=== PATIENT | male | born 1940 | race Caucasian/White ===

== ENCOUNTER 2017-04-23 12:26 | Emergency (ER) | payer MEDICARE ==
[~2017-04-23] VITALS: Ht 172.7 cm; Wt 74.0 kg
[2017-04-23 12:28] VITALS: BP 184/94; PULSE 78; RESP 15; TEMP 98.4; O2SAT 98
[2017-04-23] MEDS ORDERED: SODIUM CHLOR 0.9% 1000 ML INJ 1,000 ML IV SCH (12:54)
[2017-04-23 12:56] VITALS: RESP 17; O2SAT 98
[2017-04-23] MEDS ORDERED: diphenhydrAMINE HCL 50 MG/ML VIAL IVP ONE (13:00)
[2017-04-23] MEDS ORDERED: FAMOTIDINE 20 MG/2 ML VIAL IV PUSH ONE (13:00)
[2017-04-23] MEDS ORDERED: DEXAMETHASONE SOD PHOS 20 MG/5 ML VIAL IV PUSH ONE (13:00)
[2017-04-23] MEDS ORDERED: SODIUM CHLORIDE 0.9% FLUSH 10 ML FLUSH IV FLUSH PRN (13:00)
[2017-04-23] MEDS ORDERED: IBUP-232 PO (13:10)
[2017-04-23] MEDS ORDERED: COMB0.2S EACH EYE (13:10)
[2017-04-23] MEDS ORDERED: ROSU40 PO (13:10)
--- NOTE | 2017-04-23 13:27 | PD ---
HPI Chief Complaint: Allergic/Adverse Reaction Time Seen by Provider: 12:47 Travel History International Travel<30 days: No Contact w/Intl Traveler<30days: No Traveled to known affect area: No History of Present Illness HPI Patient is a 77-year-old male who presents to emergency room with complaints of possible allergic reaction. Patient reports that he is allergies penicillin, reports that the last time he took penicillin, he broke out in a rash and had swollen lips. Reports that at that time, he did not have any airway involvement. Patient reports that he was driving from [place] today to [place] and ate bernabe chips on the road. Reports that he thinks that he may have eaten moldly chips as he began to breakout in hives with swelling around his eyes. Patient with no airway involvement at this time. Patient reports that he has not been taking any new medications, has not used any new lotions or creams at this time. Patient with no chest pain or shortness of breath, no other complaints. PFSH Past Medical History High Cholesterol: Yes Diminished Hearing: No Medical other: Yes Tetanus Vaccination: > 5 Years Past Surgical History Eye Surgery: Yes Social History Alcohol Use: Yes (ocassionally) Tobacco Use: Yes Substance Use: No Allergies-Medications (Allergen,Severity, Reaction): Coded Allergies: Penicillins (Verified Allergy, Severe, Anaphylaxis, 04/23/17) Reported Meds & Prescriptions Reported Meds & Active Scripts Active Diphenhydramine (Diphenhydramine HCl) 25 Mg Cap 25 Mg PO Q6H PRN 5 Days Pepcid (Famotidine) 20 Mg Tab 20 Mg PO BID 5 Days Epipen 2-Skip Inj (Epinephrine) 0.3 Mg/0.3 Ml Pfpen 0.3 Mg IM ONCE PRN Prednisone 20 Mg Tab 20 Mg PO BID 5 Days Reported Ibuprofen 600 Mg Tab 600 Mg PO TID Take with food Combigan Opth Drops (Brimonidine-Timolol Opth Drops) 0.2-0.5% Soln 1 Drop EACH EYE Q12HR Crestor (Rosuvastatin Calcium) 40 Mg Tab 40 Mg PO HS Review of Systems General / Constitutional: No: Fever Eyes: No: Visual changes HENT: No: Headaches Cardiovascular: No: Chest Pain or Discomfort Respiratory: No: Shortness of Breath Gastrointestinal: No: Abdominal Pain Genitourinary: No: Dysuria Musculoskeletal: No: Pain Skin: Positive Rash, Positive Itching, Positive Hives Neurologic: No: Weakness Psychiatric: No: Depression Endocrine: No: Polydipsia Hematologic/Lymphatic: No: Easy Bruising Physical Exam Narrative GENERAL: Mild distress SKIN: Focused skin assessment warm/dry. Patient with hives to face and neck, there is no petechiae or purpura or drainage HEAD: Atraumatic. Normocephalic. EYES: Pupils equal and round. No scleral icterus. No injection or drainage. ENT: No nasal bleeding or discharge. Mucous membranes pink and moist. NECK: Trachea midline. No JVD. Airways are open and patent, there is no pharyngeal edema, uvula is midline and open and patent. Patient is talking in full sentences, no drooling. CARDIOVASCULAR: Regular rate and rhythm. No murmur appreciated. RESPIRATORY: No accessory muscle use. Clear to auscultation. Breath sounds equal bilaterally. GASTROINTESTINAL: Abdomen soft, non-tender, nondistended. Hepatic and splenic margins not palpable. MUSCULOSKELETAL: No obvious deformities. No clubbing. No cyanosis. No edema. NEUROLOGICAL: Awake and alert. No obvious cranial nerve deficits. Motor grossly within normal limits. Normal speech. PSYCHIATRIC: Appropriate mood and affect; insight and judgment normal. Data Data Last Documented VS Vital Signs Date Time Temp Pulse Resp B/P (MAP) Pulse Ox O2 Delivery O2 Flow Rate FiO2 04/23/17 13:30 97.8 68 16 141/72 (95) 99 Room Air Orders Orders Ecg Monitoring (04/23/17 12:54) Iv Access Insert/Monitor (04/23/17 12:54) Oximetry (04/23/17 12:54) Diphenhydramine Inj (Benadryl Inj) (04/23/17 13:00) Famotidine Inj (Pepcid Inj) (04/23/17 13:00) Sodium Chlor 0.9% 1000 Ml Inj (Ns 1000 M (04/23/17 12:54) Sodium Chloride 0.9% Flush (Ns Flush) (04/23/17 13:00) Dexamethasone Inj (Decadron Inj) (04/23/17 13:00) MDM Medical Decision Making Medical Screen Exam Complete: Yes Emergency Medical Condition: Yes Medical Record Reviewed: Yes Interpretation(s) Vital Signs Date Time Temp Pulse Resp B/P (MAP) Pulse Ox O2 Delivery O2 Flow Rate FiO2 04/23/17 12:56 17 98 Room Air 04/23/17 12:52 68 18 98 Room Air 04/23/17 12:28 98.4 78 15 184/94 (124) 98 Differential Diagnosis Allergic reaction, dermatitis Narrative Course Patient with allergic reaction, 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 IV steroids, Pepcid, Benadryl ordered. Patient with no airway involvement. Will monitor patient on the civil division deputy sheriff. Vital Signs Date Time Temp Pulse Resp B/P (MAP) Pulse Ox O2 Delivery O2 Flow Rate FiO2 04/23/17 13:30 97.8 68 16 141/72 (95) 99 Room Air 04/23/17 12:56 17 98 Room Air 04/23/17 12:52 68 18 98 Room Air 04/23/17 12:28 98.4 78 15 184/94 (124) 98 Patient reevaluated, patient feeling much better, patient with near resolution of symptoms. Patient will follow-up with his primary care doctor and will return to the emergency room as needed. Patient was given a RX for EpiPen, understands that she uses his medication, he will need to go to the nearest emergency room for monitoring Diagnosis Primary Impression: Allergic reaction Qualified Codes: T78.40XA - Allergy, unspecified, initial encounter Patient Instructions: General Instructions Additional Instructions: Please go to closest ER if you administer EPI pen to yourself Please follow up with your primary care doctor in 2-3 days Return to ER as needed Med/Other Pt SpecificInfo: Prescription(s) given Scripts Diphenhydramine (Diphenhydramine) 25 Mg Cap 25 MG PO Q6H Y for ALLERGIES for 5 Days, #20 CAP 0 Refills Prov: Maegan Ferrara DO 04/23/17 Famotidine (Pepcid) 20 Mg Tab 20 MG PO BID for 5 Days, #10 TAB 0 Refills Prov: Maegan Ferrara DO 04/23/17 Epinephrine Inj (Epipen 2-Skip Inj) 0.3 Mg/0.3 Ml Pfpen 0.3 MG IM ONCE Y for ALLERGIC REACTION, #1 PACK 0 Refills Prov: Maegan Ferrara DO 04/23/17 Prednisone (Prednisone) 20 Mg Tab 20 MG PO BID for 5 Days, #10 TAB 0 Refills Prov: Maegan Ferrara DO 04/23/17 Disposition: 01 DISCHARGE HOME Condition: Stable Maegan Ferrara DO Apr 23, 2017 13:27
[2017-04-23 13:30] VITALS: BP 141/72; PULSE 68; RESP 16; TEMP 97.8; O2SAT 99
[2017-04-23] MEDS ORDERED: FAMO1TAB37 PO (15:32)
[2017-04-23] MEDS ORDERED: DIPH25CA PO (15:32)
[2017-04-23] MEDS ORDERED: EPIP0.3I IM (15:32)
[2017-04-23] MEDS ORDERED: PRED20 PO (15:32)
[2017-04-23 15:40] VITALS: BP 122/81; TEMP 97.8
== END 2017-04-23 15:40 | disposition home or self-care (01) ==
LOC: NEPC 12:26
DX: T78.40XA Allergy, unspecified, initial encounter (principal); Z72.0 Tobacco use
CPT/HCPCS: 96361; 96374; 96375; 99284; J1100; J1200; J7030